=== PATIENT | male | born 1955 | race Caucasian/White ===

== ENCOUNTER 2017-08-03 15:17 | Emergency (ER) | payer MEDICAID ==
[~2017-08-03] VITALS: Ht 172.7 cm; Wt 87.6 kg
[~2017-08-03 15:17] MED LIST: INSU100V3 IJ; K1015L PO; LEVE250T PO; LEVO150 PO; MULT-1203 PO
[2017-08-03] MEDS ORDERED: PERTUSS(ACELL),DIPH,TET VAC/PF 0.5 ML VIAL IM ONE (16:15)
[2017-08-03] MEDS ORDERED: LIDOCAINE HCL 1% 10 ML VIAL INJ ONE (16:15)
[2017-08-03 16:43] LABS: GLUCOSE,POINT OF CARE 169 MG/DL (70-110)
[2017-08-03] MEDS ORDERED: BACITRACIN 0.9 GM PACKET OINTMENT TP ONE (17:45)
[2017-08-03 18:00] VITALS: BP 140/78
== END 2017-08-03 18:42 | disposition home or self-care (01) ==
LOC: EMS 15:18
DX: S91.311A Laceration without foreign body, right foot, initial encounter (principal); E11.9 Type 2 diabetes mellitus without complications; E03.9 Hypothyroidism, unspecified; Z88.8 Allergy status to other drugs, medicaments and biological substances; W22.8XXA Striking against or struck by other objects, initial encounter; Y93.89 Activity, other specified; Y92.89 Other specified places as the place of occurrence of the external cause; Y99.8 Other external cause status
CPT/HCPCS: 12002; 73630; 82948; 82962; 90471; 90715; 99284; J3490